=== PATIENT | female | born 1975 | race Caucasian/White ===

== ENCOUNTER 2018-04-15 07:40 | Day surgery (SDC) | payer OTHER ==
[~2018-04-15] VITALS: Ht 162.6 cm; Wt 68.0 kg
[2018-04-15] VITALS (10 sets, daily range): BP systolic 94–107; BP diastolic 53–62; PULSE 63–78; RESP 12–18; Ht 162.6 cm; Wt 68.0 kg
[~2018-04-15 07:40] MED LIST: COCAINE 4% 4 ML TOP ONE; DESFLURANE 15 MIN ONE; GLYCOPYRROLATE 0.4 MG INJ ONE; LIDOCAINE 1%/EPI 30 ML INJ INJ ONE; NEOSTIGMINE 3 MG/3 ML SYRINGE ONE; ROCURONIUM 50 MG INJ ONE; SUCCINYLCHOLINE CHLORIDE 100 MG/5 ML SYG IV ONE
--- NOTE | 2018-04-15 08:10 | HP ---
DATE OF ADMISSION: 04/15/2018 HISTORY: A 42-year-old female patient seen 12/2017 for evaluation of nasal obstruction noted to have allergies with septal deviation and turbinate hypertrophy, unresponsive to medication, now admitted to the hospital for corrective nasal surgery. ALLERGIES: 1. PENICILLIN. 2. KEFLEX. 3. VICODIN. Prior illnesses, daily medications, clotting disorders, habits, family history, and review of systems were negative. PAST SURGICAL HISTORY: Breast augmentation. PHYSICAL EXAMINATION GENERAL: Well-developed, well-nourished female patient in no acute distress. HEAD: Normocephalic. No masses or deformities. EARS: Tympanic membranes normal. NOSE: Obstructive septal deviation with a twisted nose deformity. NECK: No masses or adenopathy. CHEST: Clear to P and A. HEART: Regular sinus rhythm without murmur. ABDOMEN: Soft, bowel sounds normal. No masses or organomegaly. EXTREMITIES: Full range of motion without. NEUROLOGIC: Physiologic. RECTAL: Not done. IMPRESSION: Septal deviation with nasal deformity. RECOMMENDATION: For surgery. Dictated By: FRANCISCA MARROQUIN MD SC/NTS Conf#: [id number] DID#: [id number]
[2018-04-15] MEDS ORDERED: NEOMYC/POLYMYX/BACIT 30 GM OINT ONE (10:55)
[2018-04-15] MEDS ORDERED: LIDOCAINE 1%/EPI 30 ML INJ ONE (10:55)
[2018-04-15] MEDS ORDERED: COCAINE 4% 4 ML TOP ONE (10:55)
--- NOTE | 2018-04-15 10:57 | PREAC ---
Date/Time of Note Date/Time of Note DATE: 04/15/18 TIME: 10:57 Anesthesia Eval and Record Evaluation Time Pre-Procedure Interview DATE: 04/15/18 TIME: 10:57 Age 42 Sex female NPO: 8 hrs Preoperative diagnosis DEVIATED SEPTUM Planned procedure septoplasty Past Medical History Past Medical History: None Surgery & Anesthesia Issues No known issue Meds Anticoagulation: No Beta Selena within 24 hr: No Reason Beta Selena not given: Pt. not on B-Selena No Active Prescriptions or Reported Meds Meds reviewed: Yes Allergies Coded Allergies: Penicillins (Verified Allergy, Unknown, 04/15/18) Sulfa (Sulfonamide Antibiotics) (Verified Allergy, Unknown, 04/15/18) acetaminophen (Verified Allergy, Unknown, 04/15/18) cephalexin (Verified Allergy, Unknown, 04/15/18) hydrocodone (Verified Allergy, Unknown, 04/15/18) magnesium (Verified Allergy, Unknown, RASH HIVES, 04/15/18) Allergies Reviewed: Yes Labs/Studies Labs Reviewed: Reviewed by anesthesiologist test: Negative Pre-procedure Exam Last vitals Vital Signs Date Temp Pulse Resp B/P (MAP) Pulse Ox O2 O2 Flow FiO2 Time Delivery Rate 04/15/18 98.3 76 16 94/60 (71) 97 Room Air 08:54 Airway: Adequate mouth opening, Adequate thyromental dist Mallampati: Mallampati II Teeth: Normal Lung: Normal Heart: Normal ASA Physical Status ASA physical status: 2 Emergency: None Planned Anesthetic General/MAC: ETT Pre-operative Attestations Prior to commencing anesthesia and surgery, the patient was re-evaluated, there was verification of: *The patient's identity *The results of appropriate recent lab work and preoperative vital signs *The above evaluation not changing prior to induction *Anesthetic plan, risk benefits, alternative and complications discussed with patient/family; questions answered; patient/family understands, accepts and wishes to proceed. SHIRA RODRIGUEZ Apr 15, 2018 10:57
[2018-04-15] MEDS ORDERED: FENTAnyl 50 MCG/ML VIAL IV PRN ×2 (11:00)
[2018-04-15] MEDS ORDERED: MEPERIDINE 25 MG INJ IV PRN (11:00)
[2018-04-15] MEDS ORDERED: HYDROmorphONE 1 MG/5 ML IV SYRINGE IV PRN ×3 (11:00)
[2018-04-15] MEDS ORDERED: ONDANSETRON 4 MG INJ IV PRN (11:00)
[2018-04-15] MEDS ORDERED: METOCLOPRAMIDE 10 MG INJ IV PRN (11:00)
[2018-04-15] MEDS ORDERED: DIPHENHYDRAMINE 50 MG INJ IV PRN (11:00)
[2018-04-15] MEDS ORDERED: ALBUTEROL 0.083% (NEB) 2.5 MG/3 ML AMP HHN PRN (11:00)
[2018-04-15] MEDS ORDERED: FENTAnyl 50 MCG/ML VIAL ONE (11:22)
[2018-04-15] MEDS ORDERED: MIDAZOLAM 1 MG/ML 2 ML INJ ONE (11:31)
--- NOTE | 2018-04-15 12:37 | SIPON ---
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
[2018-04-15] MEDS ORDERED: ACETAMINOPHEN 325 MG TAB PO PRN (13:00)
--- NOTE | 2018-04-15 14:36 | PAC ---
Date/Time of Note Date/Time of Note DATE: 04/15/18 TIME: 14:36 Post-Anesthesia Notes Post-Anesthesia Note Last documented vital signs Vital Signs Date Temp Pulse Resp B/P (MAP) Pulse Ox O2 O2 Flow FiO2 Time Delivery Rate 04/15/18 98.2 13:44 04/15/18 63 18 100/62 98 Room Air 13:20 (75) Activity: WNL Respiratory function: WNL Cardiovascular function: WNL Mental status: Baseline Pain reasonably controlled: Yes Hydration appropriate: Yes Nausea/Vomiting absent: Yes SHIRA RODRIGUEZ Apr 15, 2018 14:36
--- NOTE | 2018-04-16 06:19 | OPR ---
DATE OF OPERATION: PREOPERATIVE DIAGNOSIS: Septal deviation with turbinate hypertrophy and nasal deformity. POSTOPERATIVE DIAGNOSIS: Septal deviation with turbinate hypertrophy and nasal deformity. OPERATIONS: Septoplasty with turbinate reduction and intranasal reconstruction. DESCRIPTION OF PROCEDURE: The patient was brought to the operating room under parenteral sedation, g eneral oral endotracheal anesthesia with the patient in the supine position, sterile sheets and drape s applied. Nose was anesthetized topically with 5% cottonoid cocaine and injectable Xylocaine 1% epi nephrine 1:100,000. The inferior turbinate bones were lightly crushed and outfractured. Bilateral i ntercartilaginous incisions were made, allowing for freeing of the nasal periosteum overlying the kanu al bones and this was completed to a transfixion incision. The septal cartilage was noted to be defl ected to the left and small strips of cartilage were removed in this area to correct cartilaginous ob struction. Following this, a dorsal irregularity was removed with a rasp. The dorsal aspect of the septal cartilage was lowered in increments. Following this, internal medial osteotomies were perform ed followed by internal lateral osteotomies. The nasal bones were mobilized infractured and brought to a symmetrical contour. This completed the nasal operation. All incisions were closed with interr upted 4-0 chromic. The nose was packed with half-inch Adaptic, bacitracin gauze. A standard splint of Aquaplast and tape was applied and the procedure terminated. The patient was awakened and extubat ed in the operating room and returned to recovery in excellent condition. ESTIMATED BLOOD LOSS: Approximately 5 mL. COMPLICATIONS: None. Dictated By: FRANCISCA POMPA/UMA Conf#: [id number] DID#: [id number]
== END 2018-04-15 14:30 | disposition home or self-care (01) ==
LOC: SDS 07:40
PROVIDERS: ATTEND Otolaryngology Otolaryngology/Facial Plastic Surgery
DX: J34.2 Deviated nasal septum (principal); J34.3 Hypertrophy of nasal turbinates
CPT/HCPCS: 30130; 30520; 84703; 88304; J2250; J2710; J3010; Z7512; Z7610